=== PATIENT | female | born 1995 | race Caucasian/White ===

== ENCOUNTER → 2020-06-05 14:58 | Outpatient (BNVA) | payer BC, SELFPAY | PROVIDERS: Family Provider Nurse Practitioner Family; PCP Nurse Practitioner Family; Visit Provider Nurse Practitioner Family | DX: M79.642 Pain in left hand (principal) | CPT/HCPCS: 73130 ==

== ENCOUNTER → 2022-04-17 14:19 | Outpatient (BNVA) | payer OTHER, SELFPAY | PROVIDERS: Family Provider Nurse Practitioner Family; PCP Nurse Practitioner Family; Visit Provider Nurse Practitioner Family | DX: M25.512 Pain in left shoulder (principal) | CPT/HCPCS: 73030 ==

== ENCOUNTER → 2022-04-30 11:08 | Outpatient (BNVA) | payer OTHER, SELFPAY | PROVIDERS: Family Provider Nurse Practitioner Family; PCP Nurse Practitioner Family; Visit Provider Nurse Practitioner Family | DX: M25.512 Pain in left shoulder (principal) | CPT/HCPCS: 73030 ==

== ENCOUNTER 2022-05-08 06:00 | Outpatient (RCR) | payer OTHER, SELFPAY | END 2022-05-29 23:59 | disposition home or self-care (01) | LOC: MPT 06:00 | PROVIDERS: PCP Nurse Practitioner Family; Visit Provider Nurse Practitioner Family | DX: S43.432D Superior glenoid labrum lesion of left shoulder, subsequent encounter (principal); X58.XXXD Exposure to other specified factors, subsequent encounter | CPT/HCPCS: 97110; 97161 ==

== ENCOUNTER 2022-05-17 11:09 | Outpatient (CLI) | payer OTHER, SELFPAY ==
--- NOTE | 2022-05-17 11:00 | IR_ITS ---
WS: [id number] SHOULDER ARTHROGRAM LEFT Fluoroscopic guided left shoulder arthrogram CLINICAL INFORMATION: Injury of left shoulder COMPARISON: None. PROCEDURE: The procedure including risks, benefits and complications were discussed with the patient, who agreed to proceed. Using sterile technique, the patient was prepped and draped in the usual ster ile fashion. After 1% lidocaine injection using fluoroscopic guidance, a 22-gauge spinal needle was a dvanced into the glenohumeral joint. Approximately 13 ml of a solution containing 15 ml normal saline , 5 ml Omnipaque 240, and 0.1 ml gadolinium was administered. No immediate complications. FLUOROSCOPY TIME: 0min [id number] # of spot films: 3 IR/IR arthrogram shoulderLT [id number] IMPRESSION: Uncomplicated fluoroscopic-guided left shoulder arthrogram. MRI to follow.
--- NOTE | 2022-05-17 11:45 | MR_ITS ---
WS: [id number] MRI LEFT SHOULDER ARTHROGRAM TECHNIQUE: Sagittal T2, coronal T1, T2 and proton density imaging. Axial gradient PDE imaging. Additi onal multiplanar fat saturation imaging obtained post intra-articular administration of gadolinium. CLINICAL INFORMATION: Injury of left shoulder COMPARISON: None. FINDINGS: Moderate degenerative arthritis at the AC joint with small amount of edema. Mild narrowing of the sub acromial space. Small amount of edema at the AC joint. Distal supraspinatus is intact. Normal infrasp inatus. Normal teres minor. Normal subscapularis. Small amount of subcoracoid fluid. Subscapularis ap pears intact. Distal biceps tendon within the bicipital groove. Thinning of the intra-articular biceps tendon with T2 signal abnormality and suspected small SLAP tea r. Contrast extends along the intra-articular biceps tendon compatible with intrasubstance partial te ar. Distal biceps tendon is somewhat diminutive but appears intact. MR/MR shoulder LT wo/w con [id number] IMPRESSION: 1. Suspected small SLAP tear extending along the biceps labral anchor with con trast extending along the intra-articular biceps tendon consistent with partial intrasubstance tear. 2. Glenoid labrum otherwise appears intact. 3. Rotator cuff is normal in appearance. No high-grade rotator cuff tear. 4. No evidence of Hill-Sachs deformity. 5. Normal bone marrow signal in the glenoid and humerus. 6. Moderate degenerative arthritis at the AC joint with a small amount of max a and mild downsloping acromion.
[2022-05-17] MEDS: iohexol 240 mg/mL 50 mL Btl INTRA-ARTI (13:11)
== END 2022-05-17 11:10 | disposition home or self-care (01) ==
PROVIDERS: PCP Nurse Practitioner Family; Visit Provider Nurse Practitioner Family
DX: S49.92XA Unspecified injury of left shoulder and upper arm, initial encounter (principal); X58.XXXA Exposure to other specified factors, initial encounter; M19.012 Primary osteoarthritis, left shoulder
CPT/HCPCS: 23350; 73223; 77002; A9577; Q9966

== ENCOUNTER 2022-05-30 06:00 | Outpatient (RCR) | payer OTHER, SELFPAY | END 2022-06-28 23:59 | disposition home or self-care (01) | LOC: MPT 06:00 | PROVIDERS: PCP Nurse Practitioner Family; Visit Provider Nurse Practitioner Family | DX: S43.402D Unspecified sprain of left shoulder joint, subsequent encounter (principal); X58.XXXD Exposure to other specified factors, subsequent encounter; M25.512 Pain in left shoulder | CPT/HCPCS: 97110; G0283 ==

== ENCOUNTER 2022-06-29 06:00 | Outpatient (RCR) | payer OTHER, SELFPAY | END 2022-07-29 23:59 | disposition home or self-care (01) | LOC: MPT 06:00 | PROVIDERS: PCP Nurse Practitioner Family; Visit Provider Nurse Practitioner Family | DX: S43.492D Other sprain of left shoulder joint, subsequent encounter (principal); X58.XXXD Exposure to other specified factors, subsequent encounter | CPT/HCPCS: 97110; 97140 ==

== ENCOUNTER 2022-07-04 06:38 | Day surgery (SDC) | payer OTHER, SELFPAY ==
[2022-07-03 13:48] VITALS: BMI 34.2
[2022-07-04] VITALS (9 sets, daily range): BP systolic 114–124; BP diastolic 69–79; PULSE 58–94; RESP 16–19; TEMP 36.2–36.9; O2SAT 90–98
[2022-07-04 07:05] LABS: OR HCG Qualitative Urine Negative (Negative)
[2022-07-04] MEDS: acetaminophen 500 mg Tablet 1000 MG PO (07:09)
[2022-07-04] MEDS: sodium chloride 0.9% 1,000 ML 30 ML IV (07:10)
[2022-07-04] MEDS: fentaNYL 50 mcg/mL INJ 2mL IVP (07:37)
--- NOTE | 2022-07-04 07:48 | W.PM.OPSUD ---
Surgery/Procedure H&P Update DATE OF PROCEDURE: July 04, 2022 DATE H&P PERFORMED: 06/11/22 H&P UPDATE INFORMATION: I have reviewed H&P completed within last 30 days PREOP DIAGNOSIS: Superior labral tear left shoulder PLANNED PROCEDURE: Operation Date: 07/04/22 08:10 Proposed Procedures p left shoulder arthroscopy with labral repair vs biceps tenodeses/ [id number],S43.432D(Left) - Ameya Quiles MD
[2022-07-04] MEDS: ceFAZolin 2,000 MG in sodium chloride 0.9% (plus) 50 ML 100 MG IV (07:57)
--- NOTE | 2022-07-04 08:43 | ANES.PREANE2 ---
Pre-Anesthetic Assessment Height/Weight: Height 1.7 m Weight 99.337 kg Temp Pulse Resp BP Pulse Ox O2 Del Method 97.3 F L 65 18 121/75 98 07/04/22 07:10 07/04/22 07:10 07/04/22 07:37 07/04/22 07:10 07/04/22 07:37 07/04/22 07:10 Preop Diagnosis: Superior labral tear left shoulder Operation Date: 07/04/22 08:10 Proposed Procedures p left shoulder arthroscopy with labral repair vs biceps tenodeses/ [id number],S43.432D(Left) - Ameya Quiles MD Familial anesthetic complications: none Was Beta Kassidy taken within 24 hours: N/A Was Clonidine taken within 24 hours: N/A Last intake: Intake Last Liquid Date 07/03/22 Last Liquid Time 23:30 Last Solid Date 07/03/22 Last Solid Time 23:30 Social No alcohol and No tobacco Exam alert, oriented x 3, clear to auscultation bilaterally and regular rate & rhythm Airway Submandibular: within normal limits Cervical ROM: within normal limits Mallampati: Class II Dentition: full Metabolic Morbid Obesity Neuropsych Depression Anesthetic Plan ASA status: 2 Anesthesia: General and Regional (specify below) (left interscalene blk) Medications/Allergies Home Medications Medication Instructions Recorded Confirmed Last Taken Type sertraline 50 mg tablet (Zoloft) 50 mg PO DAILY 06/11/22 07/04/22 07/03/22 History levonorgestrel-ethinyl estradiol 1 tab PO DAILY 07/03/22 07/04/22 07/03/22 History 0.1 mg-20 mcg tablet (Aviane) oxycodone 5 mg tablet 5 mg PO Q4H PRN pain #40 tabs 07/04/22 Unknown Rx Allergies Allergy/AdvReac Type Severity Reaction Status Date / Time No Known Allergies Allergy Verified 07/03/22 13:46 Current Medications Generic Name Dose Route Start Last Admin Trade Name Freq PRN Reason Stop Dose Admin Fentanyl 50 mcg 07/04/22 06:43 07/04/22 07:37 Fentanyl 50 Mcg/Ml Inj 2ml IVP 50 mcg Q10M PRN Administration Preop Pain Sodium Chloride 1,000 mls @ 30 mls/hr 07/04/22 06:45 07/04/22 07:10 Sodium Chloride 0.9% IV 07/05/22 06:44 30 mls/hr .Q24H GEO Administration PFSH Anesthesia Social History Smoking and tobacco status: never smoked Alcohol intake: never History of recent travel: No Female Reproductive History Date of last menstrual period: 06/26/22 Data Anesthesia Cardiac Studies: No Data to Display Anesthesia Procedures Nerve Block Nerve Block 1: Main Anesthesia: general anesthesia Time Out Performed: Yes Consent: requested by attending/covering physician, from patient, risks and benefits reviewed and patient agrees to proceed Nerve block location: interscalene (left) Anesthesia monitors applied: pulse oximetry, EKG, BP cuff and oxygen Nerve block position: semi sitting Anesthetic Used: ropivicaine 0.5% Amount of anesthesia used (mL): 30 Ultrasound used to: recognize landmarks and visualize and ID brachial plexus Nerve Stimulator Used?: No Interscalene/Femoral BLK: 2 stimuplex 22 g needle used for position and inplane approach Injection: neg aspiration of heme Patient Tolerated Procedure: well Complications: none
--- NOTE | 2022-07-04 09:39 | PM.OP ---
Operative Report Date of procedure: July 04, 2022 Pre-op diagnosis: Preop Diagnosis Superior labral tear left shoulder Post-op diagnosis: same Post-op diagnosis: Type II superior labral tear left shoulder, high-grade biceps tear bicipital groove Procedure done: Debridement tear left superior labrum arthroscopic assisted left biceps tenodesis, Implants: [employer] Q fix 1.8 mm anchors x2 Surgeon: Ameya Quiles Anesthesia: General and Nerve Block (Interscalene) Estimated blood loss (mL): 10 Condition: stable Disposition: PACU Procedure: And interscalene blocks and provided in holding. The patient was given in she was taken to the operating room where a general anesthesia was provided and she was positioned in the lateral position with her left arm in traction. She was given 2 g of Ancef. A timeout was performed. A posterior portal made 2 cm inferior and medial to the posterior corner of the acromion. The anterior working portal was localized with a spinal needle and a inflow cannula placed through a small stab incision. The diagnostic portion of arthroscopy was performed. The glenohumeral joint was free of chondromalacia. The undersurface of the rotator cuff appeared healthy. She was however noted to have complex tearing of her superior labrum and apparent attenuation of the biceps anchor attachment. A final needle was introduced to the lateral shoulder Prolene suture passed through the biceps. Both ends of the suture were brought through the anterior portal and the suture secured. The sutures will be used for later identification of the tendon. Through the anterior portal at the Hopson and Neph Werewolf cautery was placed in the biceps released from the superior labrum. Next a 3 cm long incision was made in the anterior axillary fold. Dissection was carried down bluntly to the bicipital groove. Tracks and was applied through the previous placed suture and the biceps tendon easily identified. It was pulled free into the wound where the complex tearing and splint was identified in the proximal biceps. Electrocautery was used to debride down to the bicipital groove. 2Q fix anchors were placed and the biceps was secured tightly in that groove just proximal to the musculotendinous junction with 2 luggage tag type of the sutures. The wound was irrigated with saline. Subcutaneous tissues were closed with 2-0 Vicryl. The skin was closed with interrupted 3-0 Prolene as were portals. Xeroflo gauze was placed over the anterior incision sterile dressings were applied. The patient was placed in a sling, extubated, and taken to recovery in stable condition.
--- NOTE | 2022-07-04 10:27 | P.PCN_ITS ---
PACU note Narrative: VSS, Good respiratory effort, report to [facility] Exam: awake
--- NOTE | 2022-07-04 10:27 | PM.PACU ---
PACU note Narrative: VSS, Good respiratory effort, report to [facility] Exam: awake
--- NOTE | 2022-07-04 14:48 | ANE.PACU2 ---
Inpatient post-anesthesia follow up: Airway intact: Yes Vital signs: Temperature 98.2 F Pulse Rate 61 Respiratory Rate 16 Blood Pressure 118/74 Pulse Oximetry 92 Oxygen Delivery Me thod Room Air Oxygen Flow Rate 1 Fraction of Inspir ed Oxygen Hydration adequate: Yes Nausea and vomiting: No Pain level: 1 Mental status: Baseline
== END 2022-07-04 11:26 | disposition home or self-care (01) ==
PROVIDERS: Anesthesiology; PCP Nurse Practitioner Family; Visit Provider Orthopaedic Surgery
PROC: (CPT 29805; principal; 2022-07-04 08:00)
DX: S43.432A Superior glenoid labrum lesion of left shoulder, initial encounter (principal); X58.XXXA Exposure to other specified factors, initial encounter
CPT/HCPCS: 29828; 81025; 84703; C1713; J1100; J2405; J2704; J2710; J2795; J3010; J3490; J7030

== ENCOUNTER 2022-07-30 06:00 | Outpatient (RCR) | payer OTHER, SELFPAY | END 2022-08-28 23:59 | disposition home or self-care (01) | LOC: MPT 06:00 | PROVIDERS: PCP Nurse Practitioner Family; Visit Provider Nurse Practitioner Family | DX: S43.402A Unspecified sprain of left shoulder joint, initial encounter (principal); X58.XXXA Exposure to other specified factors, initial encounter | CPT/HCPCS: 97110; 97140; G0283 ==

== ENCOUNTER 2022-08-29 06:00 | Outpatient (RCR) | payer OTHER, SELFPAY | END 2022-09-28 23:59 | disposition home or self-care (01) | LOC: MPT 06:00 | PROVIDERS: PCP Nurse Practitioner Family; Visit Provider Nurse Practitioner Family | DX: M25.512 Pain in left shoulder (principal) | CPT/HCPCS: 97110; 97140; G0283 ==

== ENCOUNTER 2022-09-29 06:00 | Outpatient (RCR) | payer OTHER, SELFPAY | END 2022-10-10 11:06 | disposition home or self-care (01) | LOC: MPT 06:00 | PROVIDERS: PCP Nurse Practitioner Family; Visit Provider Nurse Practitioner Family | DX: M25.512 Pain in left shoulder (principal) | CPT/HCPCS: 97110 ==